=== PATIENT | male | born 1995 | race Caucasian/White ===

== ENCOUNTER 2020-10-31 13:54 | Emergency (ER) | payer BC, SELFPAY ==
--- NOTE | ~2020-10-31 | XR_ITS ---
EXAMINATION: XR chest 2V EXAM DATE: 10/31/2020 14:49 INDICATION: Chronic left-sided chest pain. High blood pressure. TECHNIQUE: Frontal and lateral projections of the chest obtained and reviewed. There is no prior ashley dy for comparison. FINDINGS: The lungs are clear. There are no pleural effusions. The cardiomediastinal silhouette is within normal limits. There is no pneumothorax suspected. The bones and soft tissues are unremarkab le. IMPRESSION: Normal chest x-ray exam. 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
--- NOTE | 2020-10-31 14:11 | ECG_ITS ---
Measurements Intervals [place] Rate: 76 P: 36 HI: 176 QRS: -3 QRSD: 109 T: 11 QT: 353 QTc: 397 Interpretive Statements SINUS RHYTHM WITH SINUS ARRHYTHMIA VOLTAGE CRITERIA FOR LVH BASELINE ARTIFACT- I, II, III, AVR, AVL, AVF, V1, V3 BORDERLINE ECG Electronically Signed On 10-31-2020 14:16:27 OIL GAUGER by Everardo Eller D.O.
[2020-10-31 14:28] VITALS: BP 156/88; PULSE 72; RESP 18; TEMP 36.8; O2SAT 97
--- NOTE | 2020-10-31 14:41 | ED.CHESTPAIN ---
HPI - Chest Pain General Chief Complaint: Chest Pain Stated Complaint: sent by primary HTn/Chest pain Time Seen by Provider: 10/31/20 14:08 Source: patient Mode of arrival: ambulatory Limitations: no limitations History of Present Illness HPI narrative: Patient is a 25-year-old male complaining of chest pain, tightness, moderate, nonradiating, accompanied by elevated blood pressure started couple months ago . Patient was sent here from urgent care. Patient denies any shortness of breath, abdominal pain, nausea, vomiting, diaphoresis, fever or chills. Related Data Home Medications Medication Instructions Recorded Confirmed No Home Medications 09/18/19 09/18/19 Allergies Allergy/AdvReac Type Severity Reaction Status Date / Time Bumble Bee Allergy Mild Hives Uncoded 10/31/20 14:34 Review of Systems Review of Systems: All systems reviewed & are unremarkable except as noted in HPI and below Constitutional: Constitutional: Denies body ache(s), Denies chills, Denies excessive sweating, Denies fatigue, Denies fever(s), Denies headache(s), Denies lethargy, Denies malaise, Denies weakness and Denies weight loss Eyes: Eyes: Denies blurry vision, Denies change in vision and Denies loss of vision ENT: Denies dizziness, Denies ear discharge, Denies headache(s), Denies lip swelling, Denies epistaxis, Denies nasal congestion, Denies neck pain, Denies throat swelling and Denies tongue swelling Cardiovascular: Cardiovascular: Denies diaphoresis, Denies rapid heart rate, Denies edema, Denies irregular heart rhythm, Denies lightheadedness, Denies palpitations, Denies dyspnea and Denies dyspnea on exertion Respiratory: Respiratory: Denies chest congestion, Denies cough, Denies hemoptysis, Denies dyspnea and Denies dyspnea on exertion Gastrointestinal: Gastrointestinal: Denies abdominal pain, Denies melena, Denies hematochezia, Denies diarrhea, Denies nausea, Denies vomiting and Denies hematemesis Musculoskeletal: Musculoskeletal: Denies abnormal gait, Denies deformity, Denies joint swelling, Denies limited range of motion, Denies neck pain and Denies numbness Neurologic: Denies Abnormal speech present, Denies abnormal gait, Denies confusion, Denies dizziness, Denies headache(s), Denies focal weakness, Denies loss of vision, Denies numbness, Denies Other visual disturbances, Denies Sensory deficit (Neuro) and Denies weakness Psychiatric: Psychiatric: Denies confusion, Denies depression, Denies auditory hallucinations, Denies homicidal ideation and Denies suicidal ideation Endocrine: Endocrine: Denies cold intolerance, Denies excessive sweating, Denies fatigue, Denies heat intolerance and Denies palpitations Hematologic/Lymphatic: Hematologic/Lymphatic: Denies easy bleeding and Denies easy bruising Allergic/Immunologic: Allergic/Immunologic: Denies lip swelling, Denies throat swelling and Denies tongue swelling [facility] Social History Social History (Updated 10/31/20 @ 15:50 by Danilo Negron MD) Smoking packs per day: 0.5 Smoking cigarettes per day: 10.0 Smoking status: Current every day smoker Alcohol intake: never Substance use: former Substance use type: marijuana Exam Const: General: cooperative, healthy appearing, comfortable, no acute distress, well developed, alert and awake; No confusion Orientation/consciousness: oriented to person, oriented to place, oriented to time, patient oriented x3 and No confusion Limitations: no limitations HENMT: Head: normal to inspection, normocephalic and atraumatic Ears: hearing grossly normal bilaterally, TM normal on the right and TM normal on the left General nose exam: Normal external nose present, Normal nares present and No nasal discharge present Face and sinus: normal facial exam Mouth: Yes Normal oral and palatal mucosa present, Yes lip normal, Yes tongue normal and Yes oropharynx normal Throat: posterior oropharynx normal, tonsils normal and uvula midline Eyes: Gener
[2020-10-31 14:50] LABS: Basophils Absolute Auto 0.1 K/mm3 (0.0-0.1); Basophils Percent Auto 0.8 % (0.2-1.2); Eosinophils Absolute Auto 0.2 K/mm3 (0-0.3); Eosinophils Percent Auto 2.7 % (0-4.4); Hemoglobin 16.1 g/dL (14.0-18.0); Immature Granulocyte Absolute 0.01 K/mm3 (0.00-0.031); Immature Granulocyte Percent A 0.2 % (0-0.5); Lymphocytes Absolute Auto 2.15 K/mm3 (0.9-3.2); Lymphocytes Percent Auto 32.3 % (18.3-44.2); Mean Corpuscular HGB Conc 34.3 g/dl (32-36); Mean Corpuscular Hemoglobin 30.7 pg (26-34); Mean Corpuscular Volume 89.5 fl (80-100); Monocytes Absolute Auto 0.4 K/mm3 (0.1-0.6); Monocytes Percent Auto 5.9 % (2.6-8.5); Neutrophils Absolute Auto 3.9 K/mm3 (1.3-6.7); Neutrophils Percent Auto 58.1 % (45.5-73.1); Platelet Count Result 211 k/mm3 (150-375); Red Blood Count 5.25 M/mm3 (4.6-6.20); Red Cell Distribution Width 12.1 % (11.5-14.5); White Blood Count 6.7 K/mm3 (4.5-10.0)
[2020-10-31 15:13] LABS: Alanine Aminotransferase 32 U/L (4-50); Albumin Level 4.3 g/dL (3.5-5.1); Alkaline Phosphatase 77 U/L (38-126); Anion Gap 3 mmol/L (8-16); Aspartate Amino Transferase 26 U/L (17-59); Bilirubin,Total 0.6 mg/dL (0.2-1.3); Blood Urea Nitrogen 13 mg/dL (9-20); Calcium 9.1 mg/dL (8.4-10.2); Carbon Dioxide 29 mmol/L (22-30); Chloride 106 mmol/L (98-107); Estimated CRCL calculation 139 ml/min; Estimated Glomerular Filt Rate > 60; Glucose 117 mg/dL (75-110); Sodium 138 mmol/L (137-145)
[2020-10-31 15:24] LABS: Troponin I < 0.012 ng/mL (0.000-0.034)
== END 2020-10-31 15:57 | disposition home or self-care (01) ==
PROVIDERS: Emergency Provider Emergency Medicine; PCP Emergency Medicine
DX: R07.89 Other chest pain (principal); F17.210 Nicotine dependence, cigarettes, uncomplicated; R94.31 Abnormal electrocardiogram [ECG] [EKG]
CPT/HCPCS: 36415; 71046; 80053; 84484; 85025; 93005; 99284

== ENCOUNTER 2021-05-17 03:28 | Emergency (ER) | payer BC, SELFPAY ==
[2021-05-17 03:33] VITALS: BP 122/82; PULSE 89; RESP 18; TEMP 35.9; O2SAT 96
[2021-05-17] MEDS: SODIUM CHLORIDE 0.9% IV 1,000 ML 999 ML IV CONT (03:47)
[2021-05-17] MEDS: ONDANSETRON INJ 4 MG/2 ML VIAL IV PUSH (03:48)
[2021-05-17 04:08] LABS: Basophils Absolute Auto 0.1 K/mm3 (0.0-0.1); Basophils Percent Auto 0.7 % (0.2-1.2); Eosinophils Absolute Auto 0.1 K/mm3 (0-0.3); Eosinophils Percent Auto 0.7 % (0-4.4); Hematocrit 45.9 % (42.0-52.0); Hemoglobin 15.6 g/dL (14.0-18.0); Immature Granulocyte Absolute 0.04 K/mm3 (0.00-0.031); Immature Granulocyte Percent A 0.5 % (0-0.5); Lymphocytes Absolute Auto 1.67 K/mm3 (0.9-3.2); Lymphocytes Percent Auto 19.4 % (18.3-44.2); Mean Corpuscular Hemoglobin 30.8 pg (26-34); Mean Corpuscular Volume 90.5 fl (80-100); Mean Platelet Volume 10.6 fl (7.4-10.4); Monocytes Absolute Auto 0.4 K/mm3 (0.1-0.6); Monocytes Percent Auto 4.1 % (2.6-8.5); Neutrophils Absolute Auto 6.4 K/mm3 (1.3-6.7); Neutrophils Percent Auto 74.6 % (45.5-73.1); Platelet Count Result 228 k/mm3 (150-375); Red Blood Count 5.07 M/mm3 (4.6-6.20); Red Cell Distribution Width 12.5 % (11.5-14.5); White Blood Count 8.6 K/mm3 (4.5-10.0)
--- NOTE | 2021-05-17 04:13 | PC.NURSE ---
Pt's girlfriend leaving dept, but would like to leave her phone number in case pt needs ride. Madelyn: [phone]. Pt's nurse notified of same.
--- NOTE | 2021-05-17 04:17 | ED.GENADULT ---
HPI - General Adult General Chief complaint: Alcohol <Elieser Palmer MD - Last Filed: 05/17/21 07:10> Stated complaint: etoh - unresponsive on ground after thai fest <Elieser Palmer MD - Last Filed: 05/17/21 07:10> Time Seen by Provider: 05/17/21 03:36 <Elieser Palmer MD - Last Filed: 05/17/21 07:10> History of Present Illness HPI narrative: Patient was 5-year-old gentleman who presents the emergency department with chief complaint of acute alcohol intoxication. Patient was out at a local festival this evening and consumed a large amount of alcohol the patient was trying to to be facilitated back to his house by one of his friends and unfortunately went to the front yard of his old house and passed out in the front yard. EMS was called and the patient was transported to the emergency department. The patient states that he has had some nausea and vomiting denies any trauma. <Elieser Palmer MD - Last Filed: 05/17/21 07:10> Related Data Allergies/adverse reactions: Allergies Allergy/AdvReac Type Severity Reaction Status Date / Time Bumble Bee Allergy Mild Hives Uncoded 05/17/21 03:49 <Elieser Palmer MD - Last Filed: 05/17/21 07:10> Review of Systems Review of Systems: A 10 system review of systems was completed on the patient and is negative except for what is stated in the HPI. Nursing and ancillary documentation was reviewed. <Elieser Palmer MD - Last Filed: 05/17/21 07:10> PMFSH Social History Social History: Social History Smoking packs per day: 0.5 Smoking cigarettes per day: 10.0 Smoking status: Current every day smoker Alcohol intake: never Substance use: former Substance use type: marijuana <Elieser Palmer MD - Last Filed: 05/17/21 07:10> Exam Narrative: GENERAL: Acutely intoxicated, well-nourished, and in no acute distress. HEAD: Normocephalic, atraumatic. EYES: PERRLA and EOMI. ENT: Nares clear, no rhinorrhea or epistaxis. Mucous membranes moist. NECK: Supple. CHEST: Clear to auscultation. No respiratory distress. HEART: Regular rate and rhythm. No murmur heard. Normal peripheral pulses. ABDOMEN: Soft, nontender, nondistended, normal active bowel sounds. EXTREMITIES: Normal range of motion. No edema. SKIN: Warm, dry, no rash. NEURO: No focal deficits. Alert and oriented x3. Slow to respond PSYCH: Normal mood and affect. <Elieser Palmer MD - Last Filed: 05/17/21 07:10> Course Course Emergency Course: I assumed care of this patient at shift change with pending disposition. I have reevaluated the patient he is awake does feel comfortable going home. <Brendon Reagan MD - Last Filed: 05/17/21 09:05> Vital Signs Vital signs: Vital Signs Temperature 35.9 C L 05/17/21 03:33 Pulse Rate 89 05/17/21 03:33 Respiratory Rate 18 05/17/21 03:33 Blood Pressure 122/82 05/17/21 03:33 Pulse Oximetry 96 05/17/21 03:33 Temperature 35.9 C L 05/17/21 03:33 Pulse Rate 80 05/17/21 05:49 Respiratory Rate 18 05/17/21 05:49 Blood Pressure 119/76 05/17/21 05:49 Pulse Oximetry 99 05/17/21 05:49 <Elieser Palmer MD - Last Filed: 05/17/21 07:10> Vital Signs Temperature 35.9 C L 05/17/21 03:33 Pulse Rate 89 05/17/21 03:33 Respiratory Rate 18 05/17/21 03:33 Blood Pressure 122/82 05/17/21 03:33 Pulse Oximetry 96 05/17/21 03:33 Temperature 35.9 C L 05/17/21 03:33 Pulse Rate 80 05/17/21 05:49 Respiratory Rate 18 05/17/21 05:49 Blood Pressure 119/76 05/17/21 05:49 Pulse Oximetry 99 05/17/21 05:49 <Brendon Reagan MD - Last Filed: 05/17/21 09:05> Medical Decision Making Vital Signs Vital Signs: Vital Signs Temperature 35.9 C L 05/17/21 03:33 Pulse Rate 89 05/17/21 03:33 Respiratory Rate 18 05/17/21 03:33 Blood Pressur
[2021-05-17 04:18] LABS: Ethanol 233 mg/dL (<10)
[2021-05-17 04:19] LABS: Alanine Aminotransferase 31 U/L (4-50); Albumin Level 4.6 g/dL (3.5-5.1); Alkaline Phosphatase 89 U/L (38-126); Anion Gap 12 mmol/L (8-16); Aspartate Amino Transferase 28 U/L (17-59); Bilirubin,Total 0.3 mg/dL (0.2-1.3); Blood Urea Nitrogen 8 mg/dL (9-20); Calcium 8.7 mg/dL (8.4-10.2); Carbon Dioxide 22 mmol/L (22-30); Chloride 109 mmol/L (98-107); Estimated CRCL calculation 156 ml/min; Estimated Glomerular Filt Rate > 60; Glucose 124 mg/dL (65-110); Potassium 4.1 mmol/L (3.4-5.0); Sodium 143 mmol/L (137-145)
[2021-05-17 05:49] VITALS: BP 119/76; PULSE 80; RESP 18; O2SAT 99
== END 2021-05-17 09:36 | disposition home or self-care (01) ==
PROVIDERS: Emergency Medicine; Emergency Provider Family Medicine
DX: F10.120 Alcohol abuse with intoxication, uncomplicated (principal); F17.210 Nicotine dependence, cigarettes, uncomplicated; Y90.7 Blood alcohol level of 200-239 mg/100 ml
CPT/HCPCS: 36415; 80053; 80307; 85025; 96361; 96374; 99284; J2405; J7030

== ENCOUNTER 2022-01-27 14:14 | Emergency (ER) | payer BC, SELFPAY ==
[2022-01-27 14:30] VITALS: BP 129/91; PULSE 94; RESP 20; TEMP 37.2; O2SAT 100
--- NOTE | 2022-01-27 14:38 | ED.URI ---
HPI - URI/Sore Throat General Chief Complaint: Upper Respiratory Infection Stated Complaint: uri/sob Time Seen by Provider: 01/27/22 14:38 Source: patient and RN notes reviewed Mode of arrival: ambulatory Limitations: no limitations History of Present Illness HPI Narrative: 26-year-old male presented for complaint of sinus congestion, chest congestion, sore throat and ear pressure for 6 days. Endorses lightheadedness when moving around, fever at onset has resolved. Denies sick contacts, he is not vaccinated for COVID or flu. He is taking [id number] medication for symptoms without relief. Denies chest pain, nausea, vomiting, diarrhea. MD elicited complaint: cough Related Data Allergies Allergy/AdvReac Type Severity Reaction Status Date / Time Bumble Bee Allergy Mild Hives Uncoded 01/27/22 14:24 Review of Systems Review of Systems: CONSTITUTIONAL: Endorses malaise, chills, sweats, fever EYES: Denies visual changes, redness, or discharge ENT: Reports rhinorrhea, congestion, sinus pain, otalgia, sore throat CARDIOVASCULAR: Denies chest pain, palpitations, edema RESPIRATORY: Reports cough, post nasal drainage. Denies dyspnea GASTROINTESTINAL: Denies abdominal pain, nausea, vomiting, diarrhea NEUROLOGIC: Reports headache PMFSH Social History Social History Smoking packs per day: 0.5 Smoking cigarettes per day: 10.0 Smoking status: Current every day smoker Alcohol intake: never Substance use: former Substance use type: marijuana Exam Narrative: GENERAL: Ill-appearing, nontoxic EYES:conjunctivae clear ENT: Mucous membranes moist. TMS erythematous, with dull light reflex bilaterally; no tragal tenderness. Oropharynx erythematous without lesions or exudate, no drooling, no hoarseness, no trismus, uvula midline. No tripod positioning, muffled voice, soft palate or pharyngeal wall bulging NECK: Supple. No lymphadenopathy CHEST: Exp wheezing throughout. No respiratory distress, speaks in full sentences. HEART: Regular rate and rhythm. No murmur heard. SKIN: Warm, dry, no rash. NEURO: Alert and oriented x3. Course Course Emergency Course: Patient is aware of diagnosis, understands and agrees to treatment plan. Anticipatory guidance given. Patient agrees to follow-up as directed and is aware of reasons to seek care at the emergency department. Portions of this record may have been created with voice recognition software Level of Care: Express Care Visit Vital Signs Vital signs: Vital Signs Temperature 99 F 01/27/22 14:30 Pulse Rate 94 01/27/22 14:30 Respiratory Rate 20 01/27/22 14:30 Blood Pressure 129/91 H 01/27/22 14:30 Pulse Oximetry 100 01/27/22 14:30 Oxygen Delivery Room Air 01/27/22 14:30 Temperature 99 F 01/27/22 14:30 Pulse Rate 94 01/27/22 14:30 Respiratory Rate 20 01/27/22 14:30 Blood Pressure 129/91 H 01/27/22 14:30 Pulse Oximetry 100 01/27/22 14:30 Oxygen Delivery Room Air 01/27/22 14:30 reviewed MDM - URI/Sore Throat MDM Narrative Medical decision making narrative: Given length of symptoms and PE, he is dc with abx, steroid and inhaler. He declines work note, advised not to return if fever returns. Advised on supportive treatments and re-establishing with a pcp. aware of s/s to go to the ER. Differential Diagnosis Differential diagnosis: Likely upper respiratory infection, otitis media, sinusitis, viral infection and bronchitis Discharge Plan Discharge Clinical Impression: Upper respiratory infection Qualifiers: URI type: unspecified URI Qualified Code(s): J06.9 - Acute upper respiratory infection, unspecified Patient Disposition: Home, Self-Care Condition: Stable Instructions: Antibiotic Form, Upper Respiratory Infection (ED) Additional Instructions: Recommend Flonase spray and Zyrtec (or Claritin/Selin) for sinus pressure and congestion Take the cough syrup as n
== END 2022-01-27 14:55 | disposition home or self-care (01) ==
PROVIDERS: Emergency Provider Nurse Practitioner Family
DX: J06.9 Acute upper respiratory infection, unspecified (principal); F17.219 Nicotine dependence, cigarettes, with unspecified nicotine-induced disorders
CPT/HCPCS: 99213; G0463

== ENCOUNTER 2022-06-15 13:18 | Emergency (ER) | payer BC, SELFPAY ==
[2022-06-15 13:28] VITALS: BP 133/82; PULSE 77; RESP 16; TEMP 36.2; O2SAT 99
--- NOTE | 2022-06-15 14:30 | ED.URI ---
HPI - URI/Sore Throat General Chief Complaint: Upper Respiratory Infection Stated Complaint: uri Time Seen by Provider: 06/15/22 13:45 Source: patient, RN notes reviewed and old records reviewed Mode of arrival: ambulatory Limitations: no limitations History of Present Illness HPI Narrative: 26 year old male who presents to [facility] with complaints of cough, body aches and chills with runny nose since the May. Patient reports that he has been taking rosalinda seltzer cold, zinc and vitamin C, reports that he took home COVID test this morning which was negative. He states that he has not had COVID vaccinations or flu shot. Patient states that he does have past history of asthma and bronchitis and he smokes 1 pack daily of cigarettes. MD elicited complaint: cough, rhinorrhea and other (body aches and chills) Pertinent past history: asthma and other (tobacco abuse) Onset (ago): day(s) (day 3 of symptoms) Pain scale (0-10): 7 Treatments prior to arrival: other (rosalinda seltzer) Related Data Allergies Allergy/AdvReac Type Severity Reaction Status Date / Time Bumble Bee Allergy Mild Hives Uncoded 06/15/22 13:39 Review of Systems Review of Systems: CONSTITUTIONAL: reports malaise, chills, sweats, no known fever. EYES: Denies visual changes, redness, or discharge. ENT: Reports rhinorrhea, congestion, no sinus pain, no otalgia, no sore throat. CARDIOVASCULAR: Denies chest pain, palpitations, or edema. RESPIRATORY: Reports cough.? Denies dyspnea. GASTROINTESTINAL: Denies abdominal pain, nausea, vomiting, diarrhea SKIN: Denies rash or itching. MUSCULOSKELETAL: reports myalgia. NEUROLOGIC: Denies headache. All systems reviewed & are unremarkable except as noted in HPI and below PMFSH Past Medical History Medical History (Updated 06/18/22 @ 08:07 by Saba Gordon NP) Asthma Bronchitis Social History Social History (Updated 06/18/22 @ 08:08 by Saba Gordon NP) Smoking packs per day: 1 Smoking cigarettes per day: 20.0 Smoking status: Current every day smoker Alcohol intake: unknown Substance use: former Substance use type: marijuana Living arrangements: with family Gender identity (if verbalized by the patient): Male Comments At time of signature, agree with nursing past medical, surgical, social and family history. There is no relevant family history pertinent to the presenting complaint Exam Narrative: GENERAL: Well-appearing, well-nourished, and in no acute distress. HEAD: Normocephalic, atraumatic. EYES: PERRLA and EOMI. ENT: Nares red with clear rhinorrhea no epistaxis. Mucous membranes moist. TM's normal with good light reflex. throat red with no lesions or exudates post nasal drainage. NECK: Supple. no lymphadenopathy CHEST: Scattered wheezing on auscultation. No respiratory distress.SAO2 99% on room air HEART: Regular rate and rhythm. No murmur heard. Normal peripheral pulses. ABDOMEN: Soft, nontender, nondistended, normal active bowel sounds. EXTREMITIES: Normal range of motion. No edema. SKIN: Warm, dry, no rash. NEURO: No focal deficits. Alert and oriented x3. Course Course Emergency Course: Patient is aware of diagnosis, understands and agrees to treatment plan.? Anticipatory guidance given.? Patient agrees to follow-up as directed and is aware of reasons to seek care at the emergency department. Portions of this record may have been created with voice recognition software Level of Care: Express Care Visit Vital Signs Vital signs: Vital Signs Temperature 36.2 C L 06/15/22 13:28 Pulse Rate 77 06/15/22 13:28 Respiratory Rate 16 06/15/22 13:28 Blood Pressure 133/82 06/15/22 13:28 Pulse Oximetry 99 06/15/22 13:28 Oxygen Delivery Room Air 06/15/22 13:28 Temperature 36.2 C L 06/15/22 13:28 Pulse Rate 77 06/15/22 13:28 Respiratory Rate 16 06/15/22 13:28 Blood Pressure 133/82 06/15/22 13:28 Pulse Oximetry 99 06/15/22 13:28 Oxy
== END 2022-06-15 14:37 | disposition home or self-care (01) ==
PROVIDERS: Emergency Provider Registered Nurse
DX: J40 Bronchitis, not specified as acute or chronic (principal); F17.210 Nicotine dependence, cigarettes, uncomplicated
CPT/HCPCS: 87804; 99213; G0463

== ENCOUNTER 2022-08-04 13:47 | Emergency (ER) | payer BC, SELFPAY ==
--- NOTE | ~2022-08-04 | XR_ITS ---
EXAMINATION: XR chest 2V 08/04/2022 15:07 INDICATION: Productive cough PROCEDURE: 2 view chest COMPARISON: 10/31/2020 FINDINGS: The lungs are clear. The cardiomediastinal silhouette is within normal limits. There are no pleural effusions. There is no pneumothorax suspected. IMPRESSION: 1: NO ACUTE CARDIOPULMONARY DISEASE. Reviewed, dictated and finalized at location A. MACHINE FEEDER
[2022-08-04 13:52] VITALS: BP 136/85; PULSE 92; RESP 18; TEMP 38.4; O2SAT 98
--- NOTE | 2022-08-04 13:59 | ED.URI ---
HPI - URI/Sore Throat General Chief Complaint: Upper Respiratory Infection Stated Complaint: Fever, Chills Time Seen by Provider: 08/04/22 14:00 Source: patient Mode of arrival: ambulatory Limitations: no limitations History of Present Illness HPI Narrative: Ibrahima is a 26-year-old male patient presenting to the clinic today with complaints of fever, chills, body aches, sore throat, cough, and shortness of breath. He reports his symptoms have been going on for 1 day. States symptoms started yesterday. MD elicited complaint: sore throat and nasal congestion Related Data Allergies Allergy/AdvReac Type Severity Reaction Status Date / Time Bumble Bee Allergy Mild Hives Uncoded 08/04/22 14:07 Review of Systems Review of Systems: Pertinent positives per HPI. Patient denies any fever, chills, rash, headache, visual changes, dizziness, cough, shortness of breath, chest pain, palpitations, nausea, vomiting, diarrhea, constipation, abdominal pain, or any urinary issues. PMFSH Past Medical History Medical History (Updated 08/04/22 @ 15:21 by Leno Gatica APRN) Asthma Bronchitis Social History Social History (Updated 06/18/22 @ 08:08 by Saba Gordon NP) Smoking packs per day: 1 Smoking cigarettes per day: 20.0 Smoking status: Current every day smoker Alcohol intake: unknown Substance use: former Substance use type: marijuana Gender identity (if verbalized by the patient): Male Comments At the time of my signature, I reviewed and agree with the nursing past medical, surgical, social, and family history. There is no relevant family history pertinent to the patient complaint. Exam Narrative: General: Well-developed, well nourished, in no apparent distress Head: Normocephalic, atraumatic Eyes: Pupils equally round and reactive to light bilaterally, EOM intact, sclera and conjunctive clear, no discharge, lids normal Ears: TMs intact and clear, ear canals clear, no drainage, grossly hearing normal. Nose: Nares patent, no discharge, no inflammation, no sinus tenderness. Mouth: Oral pharynx without lesions or masses, good dentition, MMM. Neck: Supple, trachea midline, no enlargement of anterior or posterior cervical nodes, no thyroid masses or goiter palpable. Cardio: Regular rate and rhythm, s1 and s2 normal, no murmur appreciated. Resp: Clear to auscultation bilaterally, no rhonchi, rales, wheezing or rubs Course Course Emergency Course: Portions of this record may have been created with voice recognition software. Level of Care: Express Care Visit Vital Signs Vital signs: Vital Signs Temperature 38.4 C H 08/04/22 13:52 Pulse Rate 92 08/04/22 13:52 Respiratory Rate 18 08/04/22 13:52 Blood Pressure 136/85 08/04/22 13:52 Pulse Oximetry 98 08/04/22 13:52 Oxygen Delivery Room Air 08/04/22 13:52 Temperature 38.4 C H 08/04/22 14:53 Pulse Rate 92 08/04/22 13:52 Respiratory Rate 18 08/04/22 13:52 Blood Pressure 136/85 08/04/22 13:52 Pulse Oximetry 98 08/04/22 13:52 Oxygen Delivery Room Air 08/04/22 13:52 Vital signs reviewed MDM - URI/Sore Throat MDM Narrative Medical decision making narrative: At the time of visit patient is resting comfortably on exam table. He appears moderately ill. COVID influenza testing were negative in the clinic. Chest x-ray was performed and was negative for any sign of pneumonia. I suspect patient has bronchitis. Prescription for azithromycin, prednisone, and albuterol inhaler was given. Supportive measures were discussed with the patient he voiced understanding of discharge instructions and agrees to treatment plan. Differential Diagnosis Differential diagnosis: Likely sinusitis, viral infection, influenza and pharyngitis Lab Data Labs: Lab Results 08/04/22 Range/Units 13:58 POC SARS CoV-2 Ag Negative (Negative) Influenza A Screen Negative
[2022-08-04 14:53] VITALS: TEMP 38.4
[2022-08-04] MEDS: IBUPROFEN 400 MG TABLET 800 MG PO (14:53)
[2022-08-04 15:27] VITALS: TEMP 38.6
== END 2022-08-04 15:27 | disposition home or self-care (01) ==
PROVIDERS: Emergency Provider Nurse Practitioner Family
DX: J40 Bronchitis, not specified as acute or chronic (principal); F17.210 Nicotine dependence, cigarettes, uncomplicated; J45.909 Unspecified asthma, uncomplicated
CPT/HCPCS: 71046; 87426; 87804; 99213; A9270; C9803; G0463

== ENCOUNTER 2023-05-07 11:33 | Emergency (ER) | payer BC, SELFPAY ==
--- NOTE | ~2023-05-07 | XR_ITS ---
XR chest 2V DATE: 05/07/2023 12:09 INDICATION: Productive cough. Past Covid infection. Smoker. TECHNIQUE: 2 views COMPARISON: 08/04/2022 2 view chest FINDINGS: Normal heart size. No hilar or mediastinal enlargement. No pulmonary infiltrate or consolid ation, pleural effusion or pulmonary vascular congestion or pneumothorax is detected. IMPRESSION: No active cardiopulmonary disease Reviewed, dictated and finalized at location A.
[2023-05-07 11:58] VITALS: BP 148/97; PULSE 82; RESP 16; TEMP 37.4; O2SAT 98
--- NOTE | 2023-05-07 12:35 | ED.URI ---
HPI - URI/Sore Throat General Chief Complaint: Upper Respiratory Infection Stated Complaint: Sore Throat,Congestion,Short of Breath,Lethargic Time Seen by Provider: 05/07/23 12:15 Source: patient Mode of arrival: ambulatory Limitations: no limitations History of Present Illness HPI Narrative: Ibrahima is a 27-year-old male patient presenting to the clinic today with complaints of sore throat, congestion, shortness of breath, lethargy. He reports that he had COVID approximately 2 weeks ago. Has stated that he is gradually gotten worse. States that he is having cough and congestion with some yellow phlegm as well as a sore throat that is been getting worse over the last few days. Patient states he feels as though he has wiped out. He denies any known fever or chills. MD elicited complaint: cough, sore throat, rhinorrhea, nasal congestion and other (Shortness of breath) Related Data Allergies Allergy/AdvReac Type Severity Reaction Status Date / Time Bumble Bee Allergy Mild Hives Uncoded 08/04/22 14:07 Review of Systems Review of Systems: Pertinent positives per HPI. Patient denies any fever, chills, rash, headache, visual changes, dizziness, chest pain, palpitations, nausea, vomiting, diarrhea, constipation, abdominal pain, or any urinary issues. [facility] Past Medical History Medical History (Updated 05/07/23 @ 12:37 by Leno Gatica APRN) Asthma Bronchitis Social History Social History (Updated 06/18/22 @ 08:08 by Saba Godron NP) Smoking packs per day: 1 Smoking cigarettes per day: 20.0 Smoking status: Current every day smoker Alcohol intake: unknown Substance use: former Substance use type: marijuana Living arrangements: with family Gender identity (if verbalized by the patient): Male Comments At the time of my signature, I reviewed and agree with the nursing past medical, surgical, social, and family history. There is no relevant family history pertinent to the patient complaint. Exam Narrative: General: Well-developed, obese in no apparent distress Head: Normocephalic, atraumatic Eyes: Pupils equally round and reactive to light bilaterally, EOM intact, sclera and conjunctive clear, no discharge, lids normal Ears: TMs intact and congested, ear canals clear, no drainage, grossly hearing normal. Nose: Nares patent, clear discharge, no inflammation, no sinus tenderness. Mouth: Oral pharynx red with bilateral tonsillar enlargement without lesions or masses, good dentition, MMM. Neck: Supple, trachea midline, mild enlargement of anterior cervical nodes, no thyroid masses or goiter palpable. Cardio: Regular rate and rhythm, s1 and s2 normal, no murmur appreciated. Resp: Expiratory wheezing with mild rhonchi, no rales or rubs Course Course Emergency Course: Portions of this record may have been created with voice recognition software. Level of Care: Express Care Visit Vital Signs Vital signs: Vital Signs Temperature 37.4 C 05/07/23 11:58 Pulse Rate 82 05/07/23 11:58 Respiratory Rate 16 05/07/23 11:58 Blood Pressure 148/97 H 05/07/23 11:58 Pulse Oximetry 98 05/07/23 11:58 Oxygen Delivery Room Air 05/07/23 11:58 Temperature 37.4 C 05/07/23 11:58 Pulse Rate 82 05/07/23 11:58 Respiratory Rate 16 05/07/23 11:58 Blood Pressure 148/97 H 05/07/23 11:58 Pulse Oximetry 98 05/07/23 11:58 Oxygen Delivery Room Air 05/07/23 11:58 Vital signs reviewed MDM - URI/Sore Throat MDM Narrative Medical decision making narrative: At the time of visit patient is resting on the exam table. Chest x-ray was performed was negative for any sign of pneumonia. Strep screen was also completed was negative in the clinic. I suspect patient has bronchitis. Will send in prescription for azithromycin, prednisone, and albuterol inhaler. Supportive measures were discussed with the patient and he voiced understanding discharge instructions and agrees to treat
== END 2023-05-07 12:50 | disposition home or self-care (01) ==
PROVIDERS: Emergency Provider Nurse Practitioner Family
DX: J40 Bronchitis, not specified as acute or chronic (principal); F17.210 Nicotine dependence, cigarettes, uncomplicated; J45.909 Unspecified asthma, uncomplicated
CPT/HCPCS: 71046; 87081; 87880; 99213; G0463

== ENCOUNTER 2023-10-17 17:12 | Emergency (ER) | payer BC, OTHER, SELFPAY ==
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
[2023-10-17 17:50] VITALS: BP 146/91; PULSE 88; RESP 18; TEMP 37.2; O2SAT 98
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
[2023-10-17] MEDS: ACETAMINOPHEN 500 MG TABLET 1000 MG PO (18:33)
[2023-10-17] MEDS: KETOROLAC 30 MG/ML VIAL (*BKC) IM (18:34)
[2023-10-17] MEDS: CYCLOBENZAPRINE HCL 10 MG TABLET PO (18:34)
[2023-10-17 18:36] VITALS: BP 136/68; PULSE 76; RESP 14; O2SAT 98
[2023-10-17 22:00] VITALS: BP 140/87; PULSE 70; RESP 18; O2SAT 98
== END 2023-10-17 22:00 | disposition home or self-care (01) ==
PROVIDERS: Emergency Provider Student in an Organized Health Care Education/Training Program
DX: S39.012A Strain of muscle, fascia and tendon of lower back, initial encounter (principal); S16.1XXA Strain of muscle, fascia and tendon at neck level, initial encounter; V43.52XA Car driver injured in collision with other type car in traffic accident, initial encounter
CPT/HCPCS: 72040; 72072; 72100; 96372; 99284; A9270; J1885

== ENCOUNTER 2025-07-02 20:41 | Emergency (ER) | payer BC, SELFPAY ==
--- NOTE | ~2025-07-02 | CT_ITS ---
EXAMINATION: CT abdomen pelvis w con DATE: 07/03/2025 00:36 INDICATION: Right upper quadrant abdominal pain. TECHNIQUE: Computed tomography (CT) of the abdomen and pelvis was performed with 100 mL Omnipaque 350 intravenous contrast. Automated exposure control and iterative reconstruction technique were employed. The dose-length product was 1641.42 mGy-cm. COMPARISON: None. FINDINGS: The visualized portions of the lung bases are clear without pneumonia or pleural effusion. The heart size is normal. No pericardial effusion. The liver, gallbladder, spleen, pancreas, adrenal glands, and kidneys are normal. There is a left inguinal hernia containing fat. The appendix is normal. There are no dilated loops of bowel. There are no pathologically enlarged lymph nodes. There is no free intraperitoneal fluid. There is mild thoracic and lumbar spondylosis. There is mild chronic anterior wedging of multiple thoracic vertebral bodies. IMPRESSION: 1. Left inguinal hernia containing fat. Reviewed, dictated and finalized at location E. OPATH TECH
--- NOTE | ~2025-07-02 | XR_ITS ---
Examination: XR chest 2V Clinical History: RUQ abdominal pain/RLQ chest pain Comparison: 05/07/2023 Technique: PA and Lateral Findings: Cardiomediastinal silhouette normal size and configuration. Lungs clear. No acute bony abnormality. IMPRESSION: 1. No acute cardiopulmonary findings. Reviewed, dictated and finalized at location R. D MACHINE SET UP OPERATOR
--- OUTSIDE RECORDS SUMMARY | 2025-07-02 20:44 | XMS_ITS | Data Portability ---
Author Organization [place] [facility], Main Office Address [address] [place] [address] Assessment Encounter Date Assessment Date Assessment LastModified by Organization Details LastModified Time 07/18/2023 07/18/2023 Pt. will return for labs. [email or web address] Not available 07/18/2023 09:10:56 Plan of Treatment Reminders Order Date Submit Date Provider Last Modified By Organization Details Last Modified Time Details Appointments None recorded. Lab amylase + lipase, serum [address] (Lab), [address] [place], [address], 5 08:49:35 vitamin D, 25-hydroxy, total, serum [address] (Lab), [address] [place], [address], 5 08:49:35 CBC w/ auto diff [address] (Lab), [address] [place], [address], 5 08:49:34 CMP, serum or plasma [address] (Lab), [address] [place], [address], 5 08:49:35 lipid panel, serum [address] (Lab), [address] [place], [address], 5 08:49:35 TSH, serum or plasma 2024 025 [facility] (Lab), [address] [place], [address], 5 08:49:35 iron + TIBC + ferritin, serum 2022 023 [email or web address] [facility] (Lab), [address] [place], [address], 3 08:46:11 CBC 2022 023 [facility] (Lab), [address] [place], [address], 3 08:46:12 lipid panel, serum 2022 023 [email or web address] [facility] (Lab), [address] [place], [address], 3 13:04:36 CMP, serum or plasma 2022 023 [email or web address] [facility] (Lab), [address] [place], [address], 3 13:04:35 HbA1c (hemoglobin A1c), blood 2022 023 [email or web address] [facility] (Lab), [address] [place], [address], 3 08:46:11 TSH + free T4, serum 2022 023 [email or web address] [facility] (Lab), [address] [place], [address], 3 08:46:11 vitamin D, 25-hydroxy, total, serum 2022 023 [email or web address] [facility] (Lab), [address] [place], [address], 3 08:46:11 vitamin B12 + folate, serum or blood 2022 023 [email or web address] [facility] (Lab), [address] [place], [address], 3 08:46:11 testosteron e, free + total, serum 2022 023 [email or web address] [facility] (Lab), [address] [place], [address], 3 08:46:11 Referral None recorded. Procedures None recorded. Surgeries None recorded. Imaging US, abdomen, complete - Please call patient to schedule. [address] ([facility]), [address] [place], [address], 5 16:46:11 XR, chest, 2 view [address] ([facility]), [address] [place], [address], 5 16:44:52 Medication Orders omeprazole 40 mg capsule,del ayed release [address] [id number], [address] [facility], [place], [place], [id number], 5 10:10:22 Patient TargetsNo targets recorded. Patient InstructionsNo instructions recorded. Reason for Referral None Reported. Results Created Date Observation Date Name Description Value Unit Range Abnormal Flag Note LastModifiedBy Organization Detail LastModifiedTime 08/13/20 23 08/14/2023 COMP. METAB OLIC PANEL (14) glucose 87 mg/dL 70-99 Not Available [facility] ([facility]) [address] [facility], [place], [address], 08/18/2023 11:38:14 08/13/20 23 08/14/2023 COMP. METAB OLIC PANEL (14) BUN 15 mg/dL 6-20 Not Available [facility] ([facility]) [address] [facility] [place], [address], 08/18/2023 11:38:14 08/13/20 23 08/14/2023 COMP. METAB OLIC PANEL (14) creatinine 1.06 mg/dL 0.76-1 .27 Not Available [facility] ([facility]) [address] [facility] [place], [address], 08/18/2023 11:38:14 08/13/20 23 08/14/2023 COMP. METAB OLIC PANEL (14) eGFR 98 mL/mi n/1.7 3 >59 Not Available [facility] ([facility]) [address] [facility], [place], [address], 08/18/2023 11:38:14 08/13/20 23 08/14/2023 COMP. METAB OLIC PANEL (14) BUN/creatini ne ratio 14 9-20 Not Available [facility] ([facility]) [address] [facility] [place], [address], 08/18/2023 11:38:14 08/13/20 23 08/14/2023 COMP. METAB OLIC PANEL (14) sodium 140 mmol/ L 134-14 4 Not Available [facility] ([facility]) [address] [facility] [place], [address], 08/18/2023 11:38:14 08/13/20 23 08/14/2023 COMP. METAB OLIC PANEL (14) potassium 4.2 mmol/ L 3.5-5. 2 Not Available [facility] ([facility]) [address] [facility] [place], [address], 08/18/2023 11:38:14 08/13/20 23 08/14/2023 COMP. METAB OLIC PANEL (14) chloride 104 mmol/ L 96-106 Not Available [facility] ([facility]) [address], [place], [address], 08/18/2023 11:38:14 08/13/20 23 08/14/2023 COMP. METAB OLIC PANEL (14) carbon dioxide, total 22 mmol/ L 20-29 Not Available [facility] ([facility]) [address], [place], [address], 08/18/2023 11:38:14 08/13/20 23 08/14/2023 COMP. METAB OLIC PANEL (14) calcium 9.0 mg/dL 8.7-10 .2 Not Available [facility] ([facility]) [address] [facility], [place], [address], 08/18/2023 11:38:14 08/13/20 23 08/14/2023 COMP. METAB OLIC PANEL (14) protein, total 6.5 g/dL 6.0-8. 5 Not Available [facility] ([facility]) [address] [facility], [place], [address], 08/18/2023 11:38:14 08/13/20 23 08/14/2023 COMP. METAB OLIC PANEL (14) albumin 4.4 g/dL 4.3-5. 2 Not Available [facility] ([facility]) [address] [facility], [place], [address], 08/18/2023 11:38:14 08/13/20 23 08/14/2023 COMP. METAB OLIC PANEL (14) globulin, total 2.1 g/dL 1.5-4. 5 Not Available [facility] ([facility]) [address] [facility], [place], [address], 08/18/2023 11:38:14 08/13/20 23 08/14/2023 COMP. METAB OLIC PANEL (14) A/G ratio 2.1 1.2-2. 2 Not Available [facility] ([facility]) [address] [facility], [place], [address], 08/18/2023 11:38:14 08/13/20 23 08/14/2023 COMP. METAB OLIC PANEL (14) bilirubin, total 0.8 mg/dL 0.0-1. 2 Not Available [facility] ([facility]) [address] [facility], [place], [address], 08/18/2023 11:38:14 08/13/20 23 08/14/2023 COMP. METAB OLIC PANEL (14) alkaline phosphatase 101 IU/L 44-121 Not Available [facility] ([facility]) [address] [facility], [place], [address], 08/18/2023 11:38:14 08/13/20 23 08/14/2023 COMP. METAB OLIC PANEL (14) AST (SGOT) 18 IU/L 0-40 Not Available [facility] ([facility]) [address] [place], [address], 08/18/2023 11:38:14 08/13/20 23 08/14/2023 COMP. METAB OLIC PANEL (14) ALT (SGPT) 23 IU/L 0-44 Not Available [facility] ([facility]) [address] [place], [address], 08/18/2023 11:38:14 08/13/20 23 08/14/2023 CBC, PLATE LET, NO DIFFE RENTI AL WBC 6.4 x10e3 /uL 3.4-10 .8 Not Available [facility] ([facility]) [address] [place], [address], 08/18/2023 11:38:16 08/13/20 23 08/14/2023 CBC, PLATE LET, NO DIFFE RENTI AL RBC 4.99 x10e6 /uL 4.14-5 .80 Not Available [facility] ([facility]) [address] [facility], [place], [address], 08/18/2023 11:38:16 08/13/20 23 08/14/2023 CBC, PLATE LET, NO DIFFE RENTI AL hemoglobin 15.2 g/dL 13.0-1 7.7 Not Available [facility] ([facility]) [address] [facility], [place], [address], 08/18/2023 11:38:16 08/13/2008/14/2023 CBC, PLATE LET, NO DIFFE RENTI AL hematocrit 44.7 % 37.5-5 1.0 Not Available [facility] ([facility]) [address] [facility], [place], [address], 08/18/2023 11:38:16 08/13/2008/14/2023 CBC, PLATE LET, NO DIFFE RENTI AL MCV 90 fL 79-97 Not Available [facility] ([facility]) [address] [facility], [place], [address], 08/18/2023 11:38:16 08/13/20 23 08/14/2023 CBC, PLATE LET, NO DIFFE RENTI AL MCH 30.5 pg 26.6-3 3.0 Not Available [facility] ([facility]) [address] [facility], [place], [address], 08/18/2023 11:38:16 08/13/20 23 08/14/2023 CBC, PLATE LET, NO DIFFE RENTI AL MCHC 34.0 g/dL 31.5-3 5.7 Not Available [facility] ([facility]) [address] [facility], [place], [address], 08/18/2023 11:38:16 08/13/20 23 08/14/2023 CBC, PLATE LET, NO DIFFE RENTI AL RDW 12.5 % 11.6-1 5.4 Not Available [facility] ([facility]) [address] [facility], [place], [address], 08/18/2023 11:38:16 08/13/20 23 08/14/2023 CBC, PLATE LET, NO DIFFE RENTI AL platelets 222 x10e3 /uL 150-45 0 Not Available [facility] ([facility]) [address] [facility], [place], [address], 08/18/2023 11:38:16 08/13/20 23 08/14/2023 CBC, PLATE LET, NO DIFFE RENTI AL NRBC CABLE STRETCHER AND TESTER Not Available [facility] ([facility]) [address] [facility], [place], [address], 08/18/2023 11:38:16 08/13/20 23 08/14/2023 LIPID PANEL cholesterol, total 211 mg/dL 100-19 9 above high normal Not Available [facility] ([facility]) [address] [place], [address], 08/18/2023 11:38:17 08/13/20 23 08/14/2023 LIPID PANEL triglyceride s 129 mg/dL 0-149 Not Available [facility] ([facility]) [address] [facility], [place], [address], 08/18/2023 11:38:17 08/13/20 23 08/14/2023 LIPID PANEL HDL cholesterol 39 mg/dL >39 below low normal Not Available [facility] ([facility]) [address] [place], [address], 08/18/2023 11:38:17 08/13/20 23 08/14/2023 LIPID PANEL VLDL cholesterol nichole 23 mg/dL 5-40 Not Available [facility] ([facility]) [address] [place], [address], 08/18/2023 11:38:17 08/13/20 23 08/14/2023 LIPID PANEL LDL chol calc ([facility]) 149 mg/dL 0-99 above high normal Not Available [facility] ([facility]) [address] [facility], [place], [address], 08/18/2023 11:38:17 08/13/20 23 08/14/2023 LIPID PANEL comment: CABLE STRETCHER AND TESTER Not Available [facility] ([facility]) [address] [facility], [place], [address], 08/18/2023 11:38:17 08/13/20 23 08/14/2023 IRON AND TIBC iron bind.cap.(TI BC) 310 ug/dL 250-45 0 Not Available [facility] ([facility]) [address] [facility], [place], [address], 08/18/2023 11:38:18 08/13/20 23 08/14/2023 IRON AND TIBC UIBC 173 ug/dL 111-34 3 Not Available [facility] ([facility]) [address] [facility], [place], [address], 08/18/2023 11:38:18 08/13/20 23 08/14/2023 IRON AND TIBC iron 137 ug/dL 38-169 Not Available [facility] ([facility]) [address] [facility], [place], [address], 08/18/2023 11:38:18 08/13/20 23 08/14/2023 IRON AND TIBC iron saturation 44 % 15-55 Not Available [facility] ([facility]) [address] [facility], [place], [address], 08/18/2023 11:38:18 08/13/20 23 08/14/2023 VITAM IN B12 AND FOLAT E vitamin B12 483 pg/mL 232-12 45 Not Available [facility] ([facility]) [address] [place], [address], 08/18/2023 11:38:18 08/13/20 23 08/14/2023 VITAM IN B12 AND FOLAT E folate (folic acid), serum 4.8 NG/mL >3.0 A serum folat e lili ntrat ion of less than 3.1 ng/mL is consi dered to repre sent clini nichole defic iency . Not Available [facility] ([facility]) [address] [facility], [place], [address], 08/18/2023 11:38:18 08/13/20 23 08/14/2023 TESTO STERO NE,FR EE AND TOTAL testosterone 416 NG/dL 264-91 6 Adult male refer ence inter eevr is based on a popul ation of healt hy nonob erick males (BMI <30) betwe en 19 and 39 years old. Damian schrader et.al . JCEM 2017, 102;1 161-1 173. PMID: 03810 103. Not Available [facility] ([facility]) [address] [facility], [place], [address], 08/18/2023 11:38:20 08/13/20 23 08/18/2023 TESTO STERO NE,FR EE AND TOTAL free testosterone (direct) 9.5 pg/mL 9.3-26 .5 Not Available [facility] ([facility]) [address] [place], [address], 08/18/2023 11:38:20 08/13/20 23 08/14/2023 HEMOG LOBIN A1C hemoglobin A1C 5.3 % 4.8-5. 6 Predi abete s: 5.7 - 6.4 Diabe bola: >6.4 Glyce mylene contr ol for adult s with diabe bola: <7.0 Not Available [facility] ([facility]) [address] [place], [address], 08/18/2023 11:38:21 08/13/20 23 08/14/2023 THYRO XINE (T4) FREE, DIREC T T4,free(dire ct) 1.50 NG/dL 0.82-1 .77 Not Available [facility] ([facility]) [address], [place], [address], 08/18/2023 11:38:22 08/13/2008/14/2023 TSH TSH 1.270 uIU/m L 0.450- 4.500 Not Available [facility] ([facility]) [address], [place], [address], 08/18/2023 11:38:22 08/13/20 23 08/14/2023 VITAM IN D, 25-HY DROXY vitamin D, 25-hydroxy 17.4 NG/mL 30.0-1 00.0 below low normal Vitam in D defic iency has been defin ed by the [facility] [employer] and an Endoc rine Socie ty pract ice guide line as a level of serum 25-OH vitam in D less than 20 ng/mL (1,2) . The Endoc rine Socie ty went on to furth er defin e vitam in D insuf ficie ncy as a level betwe en 21 and 29 ng/mL (2). 1. IOM ([facility] [employer]). 2009. Emma ry refer ence trenton es for calci um and D. Reggie marcus [place]: [facility] . 2. Rima pat MF, Terry ey [place], Isabel off-F errar i HESS, et al. Evalu ation , treat ment, and preve ntion of vitam in D defic iency : an Endoc rine Socie ty clini nichole pract ice guide line. JCEM. 2010; 96(7) :1911 -30. Not Available [facility] ([facility]) [address], [place], [address], 08/18/2023 11:38:22 08/13/20 23 08/14/2023 TOR TIN ferritin 365 NG/mL 30-400 Not Available [facility] ([facility]) [address], [place], [address], 08/18/2023 11:38:24 08/30/19 24 08/30/2023 rapid strep group A, throa t STREP A negati ve Not Available [facility] [address], [place], [address], 08/30/2023 16:01:36 Result Notes None recorded. Problems Name Problem SNOMED Code Status Onset Date Resolution Date Notes Provider Name and Address Organization Details Recorded Time Fatigue 03095169 Active 2022 Suellen Plasencia APRN [address], [address], [place], [address], [employer] 09:16:24 Gastroesophage al reflux disease without esophagitis 802490711 Active 2022 Suellen Plasencia APRN [address], [address], [place], [address], [employer] 09:16:11 Vitamin D deficiency 02131957 Active 2023 Suellen Plasencia APRN [address], [address], [place], [address], [employer] 09:16:14 Dyspnea 811672570 Active 2024 TEGAN Adamson [address], [address], [place], [address], [employer] 10:26:24 Generalized abdominal pain 358239633 Active 2024 TEGAN Adamson [address], [address], [place], [address], [employer] 5 10:27:04 Elevated blood-pressure reading without diagnosis of hypertension 171007601 Active 2024 TEGAN Adamson [address], [address], [place], [address], [employer] 5 10:34:52 Body mass index 30+ - obesity 429262289 Active 2024 TEGAN Adamson [address] [facility], [address], [place], [address] [facility] 10:35:11 Problem Notes None recorded. Medical Equipment None Reported. Allergies No known drug allergies Medications Name Sig Start Date Stop Date Status Note LastModified by Organization Details LastModified Time cyclobenzap rine 10 mg tablet TAKE 1 TABLET BY MOUTH THREE TIMES DAILY NEEDED FOR MUSCLE SPASM 03/28 completed Not Available Not Available Not Available azithromyci n 250 mg tablet TAKE 2 TABLETS (500 MG) BY ORAL ROUTE ONCE DAILY FOR 1 DAY THEN 1 TABLET (250 MG) BY ORAL ROUTE ONCE DAILY FOR 4 DAYS 07/24 completed Not Available Not Available Not Available prednisone 20 mg tablet TAKE 2 TABLETS BY MOUTH DAILY FOR 5 DAYS 07/18 completed Not Available Not Available Not Available omeprazole 40 mg capsule,del ayed release TAKE 1 CAPSULE BY MOUTH EVERY DAY 03/28 completed Not Available Not Available Not Available amoxicillin 875 mg tablet TAKE 1 TABLET BY MOUTH EVERY 12 HOURS FOR 7 DAYS 07/24 completed Not Available Not Available Not Available ergocalcife rol (vitamin D2) 1,250 mcg (50,000 unit) capsule TAKE 1 CAPSULE BY MOUTH EVERY WEEK 03/28 completed Not Available Not Available Not Available albuterol sulfate HFA 90 mcg/actuati on aerosol inhaler INHALE 2 PUFFS BY MOUTH EVERY 4 TO 6 HOURS NEEDED FOR SHORTNESS OF BREATH OR WHEEZING active Not Available Not Available No t Available Vitals Date Recorded Body height Provider Name an d Address Organization Details Last Updated DateTime 08/30/2023 190.5 cm Diamond Brandt CMA [facility] 08/30/2023 17:04:08 Date Recorded Body weight Body mass index (BMI) Body height Body temperature Heart rate Oxygen saturation Oxygen saturation in Arterial blood by Pulse oximetry Systolic And Diastolic Provider Name and Address Organization Details Last Updated DateTime 594590. 53 g 33.9 kg/m2 190.5 cm 97.6 [degF] 71 /min 97 % 97 % 140/100 mm[Hg] MALA Thomas [facility] 10:16:38 Date Recorded Body weight Body mass index (BMI) Body height Body temperature Heart rate Oxygen saturation Oxygen saturation in Arterial blood by Pulse oximetry Systolic And Diastolic Provider Name and Address Organization Details Last Updated DateTime 3 612296. 68 g 34.7 kg/m2 190.5 cm 98.3 [degF] 81 /min 98 % 98 % 124/88 mm[Hg] Diamond munson CMA [facility] 08:38:25 Social History Question Answer Notes LastModified by Organizat ion Details LastModified Time Tobacco Smoking Status Current Every Day Smoker Diamond Brandt CMA null, [facility] 07/18/2023 08:40:10 What Is Your Level Of Caffeine Consumption? Heavy [email or web address] Information not available 07/18/2023 In The 14 Days Before Symptom Onset, Have You Had Close Contact With A Laboratory-confi rmed COVID-19 While That Case Was Ill? No Information not available 03/28/2025 In The 14 Days Before Symptom Onset, Have You Had Close Contact With A Person Who Is Under Investigation For COVID-19 While That Person Was Ill? No Information not available 03/28/2025 What Type Of Diet Are You Following? REGULAR [email or web address] Information not available 07/18/2023 Which Illicit Or Recreational Drugs Have You Used? Marijuana Information not available 03/28/2025 Do You Use Insect Repellent Routinely? No Information not available 03/28/2025 Where Do You Live? [facility] Information not available 03/28/2025 What Was The Date Of Your Most Recent Tobacco Screening? 03/28/2025 Information not available 03/28/2025 How Many Children Do You Have? 3 Information not available 03/28/2025 Do You Have Any Pets? Yes Information not available 03/28/2025 What Is Your Relationship Status? [email or web address] Information not available 07/18/2023 Do You Use Your Seat Belt Or Car Seat Routinely? Yes Information not available 03/28/2025 Do You Have Smoke And Carbon Monoxide Detectors In Your Home? Yes Information not available 03/28/2025 At What Age Did You Start Smoking Tobacco? 17 [email or web address] Information not available 07/18/2023 Are There Any Smokers In Your House? No Information not available 03/28/2025 How Much Tobacco Do You Smoke? 0.5 PPD Information not available 03/28/2025 Do You Participate In Social Media? Yes Information not available 03/28/2025 Do You Use Sunscreen Routinely? No Information not available 03/28/2025 Has Tobacco Cessation Counseling Been Provided? No Information not available 03/28/2025 Have You Recently Traveled Abroad? No Information not available 03/28/2025 Have You Used IV Drugs? No Information not available 03/28/2025 Do You Have Any Dietary Restrictions? No [email or web address] Information not available 07/18/2023 Sex: Male Functional Status Question Answer Note LastModified by Organizat ion Details LastModified Time Do you use any illicit or recreational drugs? Yes Information not available 03/28/2025 Do you or have you ever used any other forms of tobacco or nicotine? No Information not available 03/28/2025 What is your level of alcohol consumption? Occasional [email or web address] Information not available 07/18/2023 Are you currently employed? Yes Information not available 03/28/2025 What is your exercise level? None [email or web address] Information not available 07/18/2023 Mental Status Question Answer Note LastModified by Organization D etails LastModified Time Do you feel stressed (tense, restless, nervous, or anxious, or unable to sleep at night)? [id number] Information not available 03/28/2025 Family History Relationship Description Onset Age of this Age Resolved Age Notes LastModified by Organization Details LastModified Time Brother History of Hodgkin lymphoma [email or web address] Not available 08:39:24 Medical History No medical history recorded. Past Encounters Encounter ID Performer Location Encounter Start Date Encounter Closed Date Diagnosis/Indication Diagnosis SNOMED-CT Code Diagnosis ICD10 Code Diagnosis IMO Codes Diagnosis Note [id number] Ana Burks MD [facility] [address] [place] [address] 07/18/2023 08:31:51 07/18/2023 09:16:47 Diabetes mellitus screening 810427640 Z13.1 Hyperlipid emia screening 792443053 Z13.220 Fatigue 45788125 R53.83 Most likely due to post-covid and bad sleep habits.Dis cussed good sleep hygiene.Wi ll get labs to r/o any physiologi c causes. History of iron deficiency 674184529 Z86.39 States he does not think he had to be on iron supplement s at the time.Will recheck labs, especially due to increased fatigue. Gastroesop hageal reflux disease without esophagitis 046614807 K21.9 Will do trial of PPI.Counse led to avoid triggers- spicy/acid ic foods, red sauces, caffeine, alcohol, carbonated drinks. Advised elevate head of bed, not eating large meals right before bedtime.If still no improvemen t, will consider GI/scope. [id number] Ana Burks MD [facility] [address] [place] [address] 08/30/2023 16:37:41 08/30/2023 17:05:20 [id number] RANDY AdamsonP-C [facility] [address] [place] [address] 03/28/2025 10:03:05 03/28/2025 10:39:27 Adult health examination 826270785 Z00.00 Z13.6 Z13.1 [id number] Discussed medication compliance and routine follow up.Discuss ed healthy diet and routine exercise.R eviewed vaccine records and made recommenda tions as needed.Enc ouraged annual eye and dental exams, as well as twice yearly dental cleanings. Will check screening labs as listed below. Vitamin D deficiency 347 78942 E55.9 Gastroesop hageal reflux disease without esophagitis 313914802 K21.9 Generalize d abdominal pain 648269271 R10.84 420765 Dyspnea 100760606 R06.02 50515 Elevated blood-pressure reading without diagnosis of hypertension 335534043 R03.0 92882558 140/100Dis cussed DASH diet and routine exercise. Body mass index 30+ - obesity 121269369 E66.9 [id number] Weight: 271 poundsBMI: 33.9Discus sed healthy diet and routine exercise. Health Concerns Section Related Observation LastModified by Organization Detai ls LastModified Time None Recorded Concern Status LastModified by Organization Details LastModified Time None Recorded Advance Directives Directive None Recorded Payers Insurance Date Sequence Insurance Name Policy Number Policy Cedeno Covered Member ID Cedeno Member ID Guarantor Name 04/02/2025 1 [facility] PRIOR TO 03/29/2025 (MEDICAID REPLACEMENT - HMO) [id number] Ibrahima Snow Evelyne [id number] Ibrahima Stubbs Notes Date Note Type Note Provider Name and Address Organization Details Recorded Time 07/18/2023 text/html Pt. here to establish care. He was seen by a previous PCP a year ago and states he had labs done. He states they told him he had high blood pressure and high cholesterol. They wanted to start him on medication but he did not want to be on medication. He was also having chest pain at the time, states he saw cardiology and they cleared him and told him everything was normal. He went to the PCP last year because he states he has not been feeling well over the last year.He states he gets hot flashes, feels like his digestive system is not working right, will get bad heartburn and feels like the food gets stuck. He feels like he has no energy. He is sleeping about 5-6 hours a night, states he sleeps consistently but has trouble falling asleep. He does feel like symptoms started after he had covid 2 years ago. SEBLE Rascon [address] [place] [address], [place], [address], [facility] [employer] 07/18/2023 09:56:54 03/28/2025 text/html Patient is a 29 year old male that presents to the office for annual wellness. Patient reports abdominal discomfort and bloating for the last few months and overall not feeling well. labs- orderedFlu- declinesCovid- declinesTdap- UTD TEGAN Adamson [address], [place], [id number], [place] [facility] 03/28/2025 10:38:36
[2025-07-02 20:55] VITALS: BP 155/113; PULSE 110; RESP 21; TEMP 36.8; O2SAT 96
[2025-07-02 22:55] LABS: Add Urine Microscopic? NO; Appearance Urine Clear (Clear); Glucose Urine UA Negative (Negative); Leukocyte Esterase Ur Negative LEU/UL (Negative); Nitrate Urine Negative (Negative); Specific Grav Ur 1.031 (1.001-1.035)
[2025-07-02 22:56] LABS: Hematocrit 44.3 % (42.0-52.0); Hemoglobin 15.1 g/dL (14.0-18.0); Immature Granulocyte Percent A 0.3 % (0-0.5); Lymphocytes Absolute Auto 3.63 K/mm3 (0.9-3.2); Mean Corpuscular HGB Conc 34.1 g/dl (32-36); Mean Corpuscular Hemoglobin 30.6 pg (26-34); Mean Corpuscular Volume 89.9 fl (80-100); Nucleated Red Blood Cells Absolute Auto 0.000 K/mm3 (0.0-0.012); Nucleated Red Blood Cells Perc 0.0 % (0.0-0.2); Platelet Count Result 243 k/mm3 (150-375); Red Blood Count 4.93 M/mm3 (4.6-6.20); White Blood Count 9.2 K/mm3 (4.5-10.0)
[2025-07-02 23:09] LABS: Alanine Aminotransferase 30 U/L (6-50); Albumin Level 4.5 g/dL (3.5-5.1); Alkaline Phosphatase 72 U/L (38-126); Anion Gap 8 mmol/L (4-12); Aspartate Amino Transferase 31 U/L (17-59); Bilirubin,Total 0.8 mg/dL (0.2-1.3); Blood Urea Nitrogen 14 mg/dL (9-20); Calcium 9.4 mg/dL (8.4-10.2); Carbon Dioxide 27 mmol/L (22-30); Chloride 103 mmol/L (98-107); Estimated Glomerular Filt Rate > 60; Glucose 108 mg/dL (65-110); Lipase 76 U/L (23-300); Potassium 4.0 mmol/L (3.4-5.0); Sodium 138 mmol/L (137-145); Total Protein 7.2 g/dL (6.3-8.2)
--- NOTE | 2025-07-02 23:41 | ED_ITS ---
HPI - Abdominal Pain General Chief Complaint: Abdominal Pain Stated Complaint: abdominal pain x1 day Time Seen by Provider: 07/02/25 23:24 History of Present Illness HPI narrative: Patient is a 29-year-old male who presents to the ER with abdominal pain for the past 1 1/2 to 2 days. He endorses nausea earlier today, then coughed and felt like the world was ending. Patient endorses a history of high blood pressure and hyperlipidemia but has not had a chance to talk to his doctor about these new diagnoses, so he has not started medication at this time. He also endorses a history of GERD. Patient denies any shortness of breath, acute back pain, urinary symptoms, or recent fevers. Related Data Allergies Allergy/AdvReac Type Severity Reaction Status Date / Time Bumble Bee Allergy Mild Hives Uncoded 10/17/23 17:13 Review of Systems 2 Review of Systems: All systems reviewed & are unremarkable except as noted in HPI and below PMFSH Past Medical History Medical History Asthma Bronchitis Social History Social History Smoking packs per day: 1 Smoking cigarettes per day: 20.0 Alcohol intake: unknown Substance use: former Substance use type: marijuana Living arrangements: with family Gender identity (if verbalized by the patient): Male Exam 2 Narrative: GENERAL: Ill appearing, well-nourished, non-toxic, in acute distress d/t pain. HEAD: Normocephalic, atraumatic. NECK: Supple. No adenopathy, no masses. RESPIRATORY: Airway patent, respirations nonlabored. Clear to auscultation bilaterally, no rales, rhonchi, wheezing. CARDIOVASCULAR: Regular rate and rhythm without murmurs, rubs, or gallops. Peripheral pulses 2+ and equal bilaterally. ABDOMINAL: Soft, LUQ tenderness, mildly distended, no hepatosplenomegaly. Normoactive BS. + Hackett's sign MUSCULOSKELETAL: Moves all extremities. Strength/ROM intact without gross deformities. SKIN: Warm, dry, normal color. No rashes. NEURO: A&O X3. Speech clear. Cranial nerves II-XII intact. No ataxic movements. PSYCHIATRIC: Appropriate mood and affect. Normal interaction. Course Vital Signs Vital signs: Vital Signs Temperature 36.8 C 07/02/25 20:55 Pulse Rate 110 H 07/02/25 20:55 Respiratory Rate 21 H 07/02/25 20:55 Blood Pressure 155/113 H 07/02/25 20:55 Pulse Oximetry 96 07/02/25 20:55 Temperature 36.7 C 07/03/25 00:10 Pulse Rate 79 07/03/25 00:10 Respiratory Rate 18 07/03/25 00:10 Blood Pressure 133/75 07/03/25 00:10 Pulse Oximetry 97 07/03/25 00:10 Oxygen Delivery Room Air 07/03/25 00:10 MDM - Abdominal Pain MDM Narrative Medical decision making narrative: Patient is a 29-year-old male who presents to the ER with abdominal pain for the past 1 1/2 to 2 days. He endorses nausea earlier today, then coughed and felt like the world was ending because I felt a pop. Patient endorses a history of high blood pressure and hyperlipidemia but has not had a chance to talk to his doctor about these new diagnoses, so he has not started medication at this time. He also endorses a history of GERD. Patient denies any shortness of breath, acute back pain, urinary symptoms, or recent fevers. Labs Ordered: CBC, CMP, UA, lipase, UDS, PTT, INR, troponin Imaging Ordered: CT abdomen pelvis, chest x-ray Medications Ordered: 1 L normal saline IV bolus, Pepcid IV, Toradol IV, Augmentin p.o., azithromycin p.o., patient declined morphine Results: Patient's chest x-ray indicates consider pulmonary edema or atypical infection verses baseline interstitial appearance. His CT abdomen pelvis indicates no acute findings. Diagnosis: community-acquired pneumonia Patient Education/Shared MDM: Results of lab work and imaging shared with patient. He will be given a dose of IV Toradol prior to discharge. Patient strongly advised to follow-up with his PCP to ensure he is healing. He will be discharged home with a prescription for Augmentin, azithromycin, and inhaler. Strict return precautions provided. Patient verbalized understanding and is in agreement with plan. Vital signs stable at time of discharge. All questions answered. Differential Diagnosis Differential diagnosis: Likely abdominal pain, calculus of kidney, constipation, diverticulitis, gastroenteritis, pancreatitis and other (Cholecystectomy) Lab Data Attestation: I reviewed the patient's lab results. 07/02/25 22:47 07/02/25 22:47 Labs: Lab Results 07/02/25 Range/Units 22:47 WBC 9.2 (4.5-10.0) K/mm3 RBC 4.93 (4.6-6.20) M/mm3 Hgb 15.1 (14.0-18.0) g/dL Hct 44.3 (42.0-52.0) % MCV 89.9 (80-100) fl MCH 30.6 (26-34) pg MCHC 34.1 (32-36) g/dl RDW 12.5 (11.5-14.5) % Plt Count 243 (150-375) k/mm3 MPV 10.6 H (7.4-10.4) fl Immature Gran % (Auto) 0.3 (0-0.5) % Neut % (Auto) 50.7 (45.5-73.1) % Lymph % (Auto) 39.7 (18.3-44.2) % Bullock % (Auto) 6.1 (2.6-8.5) % Eos % (Auto) 2.2 (0-4.4) % Baso % (Auto) 1.0 (0.2-1.2) % Lymph # (Auto) 3.63 H (0.9-3.2) K/mm3 Bullock # (Auto) 0.6 (0.1-0.6) K/mm3 Eos # (Auto) 0.2 (0-0.3) K/mm3 Baso # (Auto) 0.1 (0.0-0.1) K/mm3 Abs Immat Gran (auto) 0.03 (0.00-0.031) K/mm3 Absolute Neuts (auto) 4.6 (1.3-6.7) K/mm3 Absolute Nucleated RBC 0.000 (0.0-0.012) K/mm3 Nucleated RBC % 0.0 (0.0-0.2) % PT 13.0 (11.1-14.7) Seconds INR 1.0 APTT 29.1 (22.3-36.8) Seconds Sodium 138 (137-145) mmol/L Potassium 4.0 (3.4-5.0) mmol/L Chloride 103 (98-107) mmol/L Carbon Dioxide 27 (22-30) mmol/L Anion Gap 8 (4-12) mmol/L BUN 14 D (9-20) mg/dL Creatinine 1.19 (0.7-1.3) mg/dL Estim Creat Clear Calc Not Reportable Estimated GFR > 60 (59 - ) Glucose 108 (65-110) mg/dL Calcium 9.4 (8.4-10.2) mg/dL Total Bilirubin 0.8 (0.2-1.3) mg/dL AST 31 (17-59) U/L ALT 30 (6-50) U/L Alkaline Phosphatase 72 (38-126) U/L Troponin I < 0.012 (0.000-0.034) ng/mL Total Protein 7.2 (6.3-8.2) g/dL Albumin 4.5 (3.5-5.1) g/dL Lipase 76 (23-300) U/L Urine Color Yellow (Yellow) Urine Appearance Clear (Clear) Urine pH 5.5 (5.0-9.0) Ur Specific [place] 1.031 (1.001-1.035) Urine Protein Negative (Negative) mg/dL Urine Glucose (UA) Negative (Negative) mg/dL Urine Ketones Trace H (Negative) mg/dL Ur Blood (Man) Negative (Negative) Urine Nitrate Negative (Negative) Urine Bilirubin Negative (Negative) Urine Urobilinogen 1.0 (<2.0) mg/dL Leukocyte Esterase Rfl Negative (Negative) EVY/UL Urine Opiates Screen Negative (Negative) Urine Methadone Screen Negative (Negative) Ur Barbiturates Screen Negative (Negative) Ur Phencyclidine Scrn Negative (Negative) Ur Amphetamine Screen Negative (Negative) U Benzodiazepines Scrn Negative (Negative) Urine Cocaine Screen Negative (Negative) U Cannabinoids Screen Positive A (Negative) Imaging Data Attestation: I personally reviewed and interpreted this imaging study as follows: Radiologist's impression: Patient's chest x-ray indicates consider pulmonary edema or atypical infection verses baseline interstitial appearance. His CT abdomen pelvis indicates no acute findings. Discharge Plan Discharge Clinical Impression: Community acquired pneumonia, Acute costochondritis Patient Disposition: Home Condition: Stable Instructions: Antibiotic Form, Community Acquired Pneumonia (ED) Additional Instructions: Please return to the ER with any worsening symptoms. Follow-up with primary care provider in the next 2 3 days to ensure your healing. Take all medications as prescribed, including regularly scheduled medications. Please complete your full dose of antibiotics. You may use your inhaler as needed for shortness of breath or wheezing. Please take Tylenol and/or ibuprofen together for pain control. Remember to drink lots of water. Patient Language: Austrian Prescriptions: New azithromycin 250 mg tablet See Rx Instructions .ROUTE .COMPLEX Qty: 6 0RF Rx Instructions: For 250 mg dose pack: take 500 mg today (day 1), then 250 mg for 4 days (days 2-5) amoxicillin-pot clavulanate 875-125 mg tablet 1 tablet PO Q12H Qty: 20 0RF albuterol sulfate [Ventolin HFA] 90 mcg/actuation HFA aerosol inhaler 2 puff inhalation QID PRN (Reason: shortness of breath or wheezing) Qty: 8.5 0RF No Action azithromycin 250 mg tablet See Rx Instructions .ROUTE .COMPLEX Qty: 6 0RF Rx Instructions: For 250 mg dose pack: take 500 mg today (day 1), then 250 mg for 4 days (days 2-5) prednisone 20 mg tablet 40 mg PO DAILY 5 Days Qty: 10 0RF albuterol sulfate 90 mcg/actuation HFA aerosol inhaler 2 puff inhalation Q4-6H PRN (Reason: shortness of breath or wheezing) 30 Days Qty: 8.5 0RF azithromycin 250 mg tablet See Rx Instructions .ROUTE .COMPLEX Qty: 6 0RF Rx Instructions: For 250 mg dose pack: take 500 mg today (day 1), then 250 mg for 4 days (days 2-5) prednisone 20 mg tablet 40 mg PO DAILY 5 Days Qty: 10 0RF albuterol sulfate 90 mcg/actuation HFA aerosol inhaler 2 puff inhalation Q4-6H PRN (Reason: shortness of breath or wheezing) 30 Days Qty: 8.5 0RF cyclobenzaprine 10 mg tablet 10 mg PO TID PRN (Reason: muscle spasm) Qty: 20 0RF Follow-up/Referrals: PHYSICIAN,CABLE WAY OPERATOR [Primary Care Provider, Internal Medicine]
[2025-07-03 00:06] LABS: INR 1.0; Prothrombin Time 13.0 Seconds (11.1-14.7)
[2025-07-03 00:07] LABS: Partial Thromboplastin Time 29.1 Seconds (22.3-36.8)
[2025-07-03 00:09] LABS: Cannabinoid Screen Urine Positive (Negative)
[2025-07-03 00:10] VITALS: BP 133/75; PULSE 79; RESP 18; TEMP 36.7; O2SAT 97
[2025-07-03] MEDS: SODIUM CHLORIDE 0.9% IV 1,000 ML 999 ML IV CONT (00:19)
[2025-07-03] MEDS: FAMOTIDINE 20 MG/2 ML VIAL IV PUSH (00:23)
[2025-07-03] MEDS: ONDANSETRON INJ 4 MG/2 ML VIAL IV PUSH (00:23)
[2025-07-03 00:30] LABS: Troponin I < 0.012 ng/mL (0.000-0.034)
--- NOTE | 2025-07-03 00:54 | ECG_ITS ---
Test Date: 2025-07-03 00:54:19 Measurements Intervals [place] Rate: 70 P: 36 SD: 201 QRS: -1 QRSD: 100 T: 32 QT: 366 QTc: 396 Interpretive Statements SINUS RHYTHM MINIMAL VOLTAGE CRITERIA FOR LVH, CONSIDER NORMAL VARIANT Electronically Signed On 07-03-2025 07:20:21 DISPLAY DEPARTMENT MANAGER by Lane Pruett D.O
[2025-07-03] MEDS: AZITHROMYCIN 250 MG TABLET 500 MG PO (01:56)
[2025-07-03] MEDS: KETOROLAC 15 MG/ML VIAL (*BKC) IV PUSH (01:56)
[2025-07-03 02:04] VITALS: BP 148/92; PULSE 79; RESP 19; TEMP 36.6; O2SAT 98
== END 2025-07-03 02:05 | disposition home or self-care (01) ==
PROVIDERS: Emergency Medicine; Emergency Provider Registered Nurse
DX: J18.9 Pneumonia, unspecified organism (principal); M94.0 Chondrocostal junction syndrome [Tietze]; I10 Essential (primary) hypertension; E78.5 Hyperlipidemia, unspecified; J45.909 Unspecified asthma, uncomplicated; F17.210 Nicotine dependence, cigarettes, uncomplicated
CPT/HCPCS: 36415; 71046; 74177; 80053; 80307; 81003; 83690; 84484; 85025; 85610; 85730; 93005; 96361; 96374; 96375; 99284; A9270; J1885; J2405; J7030; Q9967